=== PATIENT | female | born 1975 | race Caucasian/White ===

== ENCOUNTER → 2019-02-25 | Outpatient (CLI) | payer OTHER ==
--- NOTE | 2019-02-25 10:49 | RAD ---
EXAM: Dual energy x-ray absorptiometry (DEXA). HISTORY: Postmenopausal female presents for osteoporosis screening. COMPARISON: None. TECHNIQUE: Dual energy x-ray absorptiometry of the lumbar spine and right hip was performed. Calculation of bone mineral density based on standard deviations above or below the expected young adult normal value (T-score) was completed. FINDINGS: The average bone mineral density in the 1st through 4th lumbar vertebrae is 1.060 g/cmxcm, corresponding with a T-score of -1.0. The average total bone mineral density in the right hip is 0.87 g/cmxcm, corresponding with a T-score of -0.7. IMPRESSION: 1. Borderline osteopenia measured at the lumbar spine. 2. Normal bone mineral density measured at the right hip. Note: Definitions established by the [employer] Organization: 1. Normal: T-score is -1.0 or above. 2. Osteopenia: T-score is between -1.0 and -2.5 . 3. Osteoporosis: T-score is -2.5 or below. Electronically signed by: Veronica Mello MD (02/25/2019 10:46 AM) [facility]
== END | disposition home or self-care (01) ==
LOC: DXRAD 09:44
PROVIDERS: ATTEND Internal Medicine Hematology & Oncology
DX: Z13.820 Encounter for screening for osteoporosis (principal); M85.88 Other specified disorders of bone density and structure, other site; Z78.0 Asymptomatic menopausal state; Z17.0 Estrogen receptor positive status [ER+]; Z92.3 Personal history of irradiation; Z92.21 Personal history of antineoplastic chemotherapy; Z85.3 Personal history of malignant neoplasm of breast
CPT/HCPCS: 77080

== ENCOUNTER → 2021-03-31 | Outpatient (CLI) | payer OTHER ==
--- NOTE | 2021-03-31 14:07 | RAD ---
US [facility] 03/31/2021 1:18 PM INDICATION: Left breast lump, not palpable to the patient. History of breast cancer with bilateral ma stectomy. COMPARISON: None available TECHNIQUE: Targeted sonographic evaluation of the left chest was performed. FINDINGS: No suspicious microcalcification, masses or areas of architectural distortion identified within the l eft breast and left axilla. In the area of concern, there is no suspicious abnormality. IMPRESSION: Negative limited left breast ultrasound. BI-RADS category: 1; Negative Recommendations: Clinical management of left chest wall palpable abnormality. Negative imaging does n ot preclude additional imaging if symptoms warrant. Electronically signed by: Lucretia Joseph MD (03/31/2021 2:05 PM) [id number]
== END ==
LOC: US 12:52
PROVIDERS: ATTEND Registered Nurse
DX: C50.412 Malignant neoplasm of upper-outer quadrant of left female breast (principal); C50.411 Malignant neoplasm of upper-outer quadrant of right female breast; Z17.0 Estrogen receptor positive status [ER+]
CPT/HCPCS: 76642